=== PATIENT | male | born 1955 | race Two or more races ===

== ENCOUNTER → 2018-09-05 | Outpatient (CLI) | payer OTHER ==
[~2018-09-05] MED LIST: ALPR0.5T PO; ESCI10TA PO; GLY5T PO; LORA2TAB89 PO; LOSA100T22 PO; METF-371 PO; MULT-228 PO
[2018-09-05 13:42] LABS: Uric Acid 8.5 mg/dL (3.5-7.2)
== END | disposition home or self-care (01) ==
LOC: LAB 12:17
PROVIDERS: ATTEND Internal Medicine
DX: Z12.11 Encounter for screening for malignant neoplasm of colon (principal); I10 Essential (primary) hypertension; E11.9 Type 2 diabetes mellitus without complications
CPT/HCPCS: 36415; 80061; 82043; 83036; 84550

== ENCOUNTER → 2018-12-18 | Outpatient (CLI) | payer OTHER | END | disposition home or self-care (01) | LOC: LAB 12:13 | PROVIDERS: ATTEND Internal Medicine | DX: E11.9 Type 2 diabetes mellitus without complications (principal); I10 Essential (primary) hypertension; E79.0 Hyperuricemia without signs of inflammatory arthritis and tophaceous disease | CPT/HCPCS: 36415; 83036; 84550 ==

== ENCOUNTER → 2019-02-27 | Outpatient (CLI) | payer OTHER ==
[2019-02-27 12:57] LABS: Albumin 3.5 g/dL (3.4-5.0); Calcium 8.9 mg/dL (8.5-10.1); Potassium 5.2 mmol/L (3.5-5.1); Uric Acid 6.8 mg/dL (3.5-7.2)
[2019-02-27 13:02] LABS: BUN/Creatinine Ratio 19.9; Bilirubin, Total 0.5 mg/dL (0.2-1.0); Total Protein 7.8 g/dL (6.4-8.2)
== END | disposition home or self-care (01) ==
LOC: LAB 11:59
PROVIDERS: ATTEND Internal Medicine
DX: Z12.5 Encounter for screening for malignant neoplasm of prostate (principal); E79.0 Hyperuricemia without signs of inflammatory arthritis and tophaceous disease; E11.40 Type 2 diabetes mellitus with diabetic neuropathy, unspecified; E11.21 Type 2 diabetes mellitus with diabetic nephropathy; I10 Essential (primary) hypertension
CPT/HCPCS: 36415; 80053; 80061; 84153; 84550

== ENCOUNTER → 2019-03-14 | Outpatient (CLI) | payer OTHER ==
[2019-03-14 13:42] LABS: BUN/Creatinine Ratio 17.9
== END | disposition home or self-care (01) ==
LOC: LAB 11:55
PROVIDERS: ATTEND Internal Medicine
DX: E11.21 Type 2 diabetes mellitus with diabetic nephropathy (principal); E11.40 Type 2 diabetes mellitus with diabetic neuropathy, unspecified
CPT/HCPCS: 36415; 80048

== ENCOUNTER → 2020-07-17 | Outpatient (CLI) | payer OTHER ==
[2020-07-17 13:52] LABS: Cholesterol 89 mg/dL (< 200); HDL Cholesterol 44 mg/dL (40-59); LDL Cholesterol 31 mg/dL (< 100); Triglycerides 83 mg/dL (< 150)
== END | disposition home or self-care (01) ==
LOC: LAB 12:49
PROVIDERS: ATTEND Internal Medicine
DX: E11.9 Type 2 diabetes mellitus without complications (principal); Z12.11 Encounter for screening for malignant neoplasm of colon
CPT/HCPCS: 36415; 80061; 82043; 83036

== ENCOUNTER → 2020-10-10 | Outpatient (CLI) | payer OTHER ==
[~2020-10-10] MED LIST changes: -GLY5T PO; +GLYB5TAB9 PO
[2020-10-10 14:19] LABS: Albumin 3.8 g/dL (3.4-5.0); Calcium 8.6 mg/dL (8.5-10.1)
[2020-10-10 14:22] LABS: BUN/Creatinine Ratio 13.3; Bilirubin, Total 0.6 mg/dL (0.2-1.0); Total Protein 7.5 g/dL (6.4-8.2)
[2020-10-10 14:32] LABS: Potassium 5.6 mmol/L (3.5-5.1)
== END | disposition home or self-care (01) ==
LOC: LAB 13:25
PROVIDERS: ATTEND Internal Medicine
DX: E11.9 Type 2 diabetes mellitus without complications (principal)
CPT/HCPCS: 36415; 80053

== ENCOUNTER → 2020-10-17 | Outpatient (CLI) | payer OTHER ==
[2020-10-17 14:04] LABS: BUN/Creatinine Ratio 13.7; Calcium 8.8 mg/dL (8.5-10.1); Potassium 5.3 mmol/L (3.5-5.1)
== END | disposition home or self-care (01) ==
LOC: LAB 13:08
PROVIDERS: ATTEND Internal Medicine
DX: E87.5 Hyperkalemia (principal)
CPT/HCPCS: 36415; 80048

== ENCOUNTER → 2020-10-30 | Outpatient (CLI) | payer OTHER ==
[2020-10-30 13:29] LABS: Calcium 8.6 mg/dL (8.5-10.1)
[2020-10-30 13:32] LABS: BUN/Creatinine Ratio 14.5
== END | disposition home or self-care (01) ==
LOC: LAB 11:35
PROVIDERS: ATTEND Internal Medicine
DX: E87.5 Hyperkalemia (principal)
CPT/HCPCS: 36415; 80048

== ENCOUNTER → 2020-11-26 | Outpatient (CLI) | payer OTHER ==
[2020-11-26 11:22] LABS: Basophils # (auto) 0.1 10 ^3/uL (0-0.2); Eosinophils # (auto) 0.2 10 ^3/uL (0-0.8); Eosinophils % (auto) 3.1 % (0.0-7.0); Hematocrit 38.7 % (41.0-53.0); Hemoglobin 13.4 g/dL (13.5-17.5); Lymphocytes # (auto) 0.8 10 ^3/uL (0.4-5.4); Lymphocytes % (auto) 12.7 % (10.0-50.0); Mean Corpuscular Hemoglobin 34.2 pg (28.0-32.0); Mean Corpuscular Hgb Conc. 34.5 g/dL (32.0-36.0); Mean Corpuscular Volume 99.2 fL (80.0-100.0); Monocytes # (auto) 0.5 10 ^3/uL (0-1.3); Monocytes % (auto) 7.3 % (0.0-12.0); Neutrophils % (auto) 75.9 % (37.0-80.0); Nucleated Red Blood Cells % 0.2 %; Platelet Count (auto) 178 10^3/uL (140-450); White Blood Cell 6.6 10^3/uL (4.4-10.8)
== END | disposition home or self-care (01) ==
LOC: LAB 10:38
PROVIDERS: ATTEND Internal Medicine
DX: E11.9 Type 2 diabetes mellitus without complications (principal); N40.0 Benign prostatic hyperplasia without lower urinary tract symptoms
CPT/HCPCS: 36415; 83036; 84153; 85025

== ENCOUNTER → 2020-12-03 | Outpatient (CLI) | payer OTHER ==
[2020-12-03 12:54] LABS: BUN/Creatinine Ratio 13.4; Calcium 8.2 mg/dL (8.5-10.1); Potassium 4.8 mmol/L (3.5-5.1); Uric Acid 5.9 mg/dL (3.5-7.2)
== END | disposition home or self-care (01) ==
LOC: LAB 11:38
PROVIDERS: ATTEND Internal Medicine
DX: E11.9 Type 2 diabetes mellitus without complications (principal); I10 Essential (primary) hypertension; E78.5 Hyperlipidemia, unspecified; E87.5 Hyperkalemia
CPT/HCPCS: 36415; 80048; 82306; 83880; 84550

== ENCOUNTER 2021-01-02 13:02 | Inpatient (IN) | payer OTHER ==
[~2021-01-02] VITALS: Ht 180.3 cm; Wt 108.9 kg
[2021-01-02 13:54] LABS: Basophils # (auto) 0 10 ^3/uL (0-0.2); Basophils % (auto) 0.6 % (0.0-2.0); Eosinophils # (auto) 0.1 10 ^3/uL (0-0.8); Eosinophils % (auto) 1.7 % (0.0-7.0); Hematocrit 32.9 % (41.0-53.0); Hemoglobin 11.3 g/dL (13.5-17.5); Lymphocytes # (auto) 0.5 10 ^3/uL (0.4-5.4); Lymphocytes % (auto) 6.4 % (10.0-50.0); Mean Corpuscular Hemoglobin 33.8 pg (28.0-32.0); Mean Corpuscular Hgb Conc. 34.3 g/dL (32.0-36.0); Mean Corpuscular Volume 98.5 fL (80.0-100.0); Monocytes # (auto) 0.7 10 ^3/uL (0-1.3); Monocytes % (auto) 9.2 % (0.0-12.0); Neutrophils # (auto) 5.9 10 ^3/uL (1.6-8.6); Neutrophils % (auto) 82.1 % (37.0-80.0); Red Blood Cells 3.34 10^6/uL (4.5-5.90); Red Cell Distribution Width 14.7 % (11.8-14.3); White Blood Cell 7.2 10^3/uL (4.4-10.8)
[2021-01-02 14:08] LABS: Albumin 3.2 g/dL (3.4-5.0); Anion Gap 10 (5-15); Blood Urea Nitrogen 74 mg/dL (7-18); Calcium 8.4 mg/dL (8.5-10.1); Carbon Dioxide 15 mmol/L (21-32); Chloride 112 mmol/L (98-107); Glucose 113 mg/dL (74-106); Magnesium 2.2 mg/dL (1.6-2.6); Potassium 4.4 mmol/L (3.5-5.1); Sodium 137 mmol/L (136-145)
[2021-01-02 14:15] LABS: Alanine Aminotransferase 24 U/L (16-61); Alkaline Phosphatase 108 U/L (45-117); Aspartate Aminotransferase 17 U/L (15-37); BUN/Creatinine Ratio 12.4; Bilirubin, Total 1.4 mg/dL (0.2-1.0); GFR African American 12 mL/min; GFR Non-African American 10 mL/min; Total Protein 7.5 g/dL (6.4-8.2)
[2021-01-02] MEDS ORDERED: FUROSEMIDE 40 MG/4 ML VIAL IV ONE (14:15)
[2021-01-02] MEDS ORDERED: NITROGLYCERIN 0.4 MG SL TAB SL PRN ×2 (15:30→21:30)
[2021-01-02] MEDS ORDERED: MORPHINE SULFATE INJECTION 2 MG/ML SYRG IV PRN ×3 (15:30→21:30)
[2021-01-02 18:02] VITALS: BP 124/71
[2021-01-02] MEDS ORDERED: ALBUTEROL SULF 2.5 MG/0.5ML(0.5%) NEB SOLN NEB PRN (18:45)
[2021-01-02 19:05] VITALS: BP 124/71
[2021-01-02 19:31] VITALS: BP 134/65
[2021-01-02] MEDS ORDERED: ONDANSETRON HCL 4 MG/2 ML VIAL IV PRN (21:30)
[2021-01-02] MEDS ORDERED: ALUM & MAG HYDROX-SIMETH LIQ(MAALOX) 30 ML PO PRN (21:30)
[2021-01-02] MEDS ORDERED: FUROSEMIDE 100 MG/10ML VIAL IV ONE (21:30)
[2021-01-02] MEDS ORDERED: DOCUSATE SOD 100 MG CAP PO PRN (21:30)
[2021-01-02] MEDS ORDERED: ACETAMINOPHEN 325 MG TAB PO PRN (21:30)
[2021-01-02 22:00] VITALS: BP 152/76
[2021-01-02] MEDS ORDERED: CARVEDILOL 12.5 MG TAB PO SCH (22:30)
[2021-01-02] MEDS ORDERED: DEXTROSE (50%) 50ML SYRG IV PRN (22:30)
[2021-01-02] MEDS: ATORVASTATIN 20 MG TAB PO SCH (23:34)
[2021-01-02] MEDS ORDERED: HYDR-4296 PO (23:41)
[2021-01-02] MEDS ORDERED: METO-462 PO (23:41)
[2021-01-02] MEDS ORDERED: NIFE1TAB31 PO (23:41)
[2021-01-03 04:35] LABS: Urine Bacteria FEW /hpf (None Seen); Urine Blood 1+ /uL (Negative); Urine Hyaline Cast MOD /lpf (0 - 2); Urine Specific Gravity 1.009 (1.001-1.035); Urine WBC 2 /hpf (0 - 3)
[2021-01-03 04:36] LABS: Alcohol, Urine < 3.0 mg/dL (0-10); Amphetamine Screen, Urine NEGATIVE (NEGATIVE); Barbiturate Scree,Urine NEGATIVE (NEGATIVE); Benzodiazephine Screen, Urine NEGATIVE (NEGATIVE); Cannabinoid Screen, Urine NEGATIVE (NEGATIVE); Cocaine Screen, Urine NEGATIVE (NEGATIVE); Opiate Scree,Urine NEGATIVE (NEGATIVE); Phencyclidine Screen, Urine NEGATIVE (NEGATIVE)
[2021-01-03 05:00] VITALS: BP 151/76
[2021-01-03] MEDS ORDERED: FUROSEMIDE 100 MG/10ML VIAL IV SCH (06:00)
[2021-01-03 06:21] LABS: Basophils # (auto) 0.1 10 ^3/uL (0-0.2); Eosinophils # (auto) 0 10 ^3/uL (0-0.8); Eosinophils % (auto) 0.3 % (0.0-7.0); Lymphocytes # (auto) 0.4 10 ^3/uL (0.4-5.4); Mean Corpuscular Hemoglobin 34.2 pg (28.0-32.0); Neutrophils # (auto) 8.3 10 ^3/uL (1.6-8.6)
[2021-01-03 06:23] LABS: Basophils % (auto) 0.5 % (0.0-2.0); Hemoglobin 11.5 g/dL (13.5-17.5); Lymphocytes % (auto) 4.3 % (10.0-50.0); Mean Corpuscular Hgb Conc. 34.8 g/dL (32.0-36.0); Mean Corpuscular Volume 98.5 fL (80.0-100.0); Monocytes # (auto) 0.8 10 ^3/uL (0-1.3); Monocytes % (auto) 8.4 % (0.0-12.0); Neutrophils % (auto) 86.5 % (37.0-80.0); Red Blood Cells 3.35 10^6/uL (4.5-5.90); Red Cell Distribution Width 14.7 % (11.8-14.3); White Blood Cell 9.6 10^3/uL (4.4-10.8)
[2021-01-03 06:38] LABS: Calcium 8.3 mg/dL (8.5-10.1); Chloride 109 mmol/L (98-107); INR 1.18 (0.9-1.15); Partial Thromboplastin Time 27.8 sec (23.0-31.2); Potassium 4.4 mmol/L (3.5-5.1); Sodium 134 mmol/L (136-145)
[2021-01-03] MEDS: ACCU-CHEK COMFORT CURVE STRIP VI SCH ×4 (06:42→22:00)
[2021-01-03] MEDS: InsuLIN REG 1unit/0.01ml Soln (100units/ml) SC SCH ×4 (06:42→22:00)
[2021-01-03 06:46] LABS: Alanine Aminotransferase 26 U/L (16-61); Albumin 3.2 g/dL (3.4-5.0); Alkaline Phosphatase 121 U/L (45-117); Anion Gap 13 (5-15); Aspartate Aminotransferase 23 U/L (15-37); Bilirubin, Total 1.2 mg/dL (0.2-1.0); Blood Urea Nitrogen 74 mg/dL (7-18); Carbon Dioxide 12 mmol/L (21-32); GFR African American 12 mL/min; GFR Non-African American 10 mL/min; Glucose 133 mg/dL (74-106); Magnesium 2.2 mg/dL (1.6-2.6); Phosphorus 5.3 mg/dL (2.5-4.90); Thyroid Stimulating Hormone 2.73 uIU/mL (0.358-3.74); Total Protein 7.8 g/dL (6.4-8.2); Uric Acid 6.1 mg/dL (3.5-7.2)
[2021-01-03 09:00] VITALS: BP 161/83
[2021-01-03] MEDS: METOPROLOL SUCCINATE XL 50 MG TAB PO SCH (09:41)
[2021-01-03] MEDS: ASPirin 81 mg TAB PO SCH (09:41)
[2021-01-03] MEDS ORDERED: LISINOPRIL 10 MG TAB PO SCH (10:00)
[2021-01-03 13:00] VITALS: BP 154/81
[2021-01-03] MEDS ORDERED: cefTRIAXone 1GM/50ML D5W 50 ML IV ONE (16:15)
[2021-01-03] MEDS ORDERED: MULTIPLE VITAMINS W/ MINERALS TAB PO ONE (16:15)
[2021-01-03 17:00] VITALS: BP 155/73
[2021-01-03] MEDS: hydrALAZINE HCL 20 MG/ML VL IV PRN (18:20)
[2021-01-03] MEDS: FUROSEMIDE 40 MG/4 ML VIAL IV SCH (18:20)
[2021-01-03 21:47] VITALS: BP 155/78
[2021-01-03] MEDS: ATORVASTATIN 20 MG TAB PO SCH (23:06)
[2021-01-03] MEDS: APIXABAN 5 MG TAB PO SCH (23:06)
[2021-01-03] MEDS: ALPRAZolam 0.5 MG TAB PO PRN (23:07)
[2021-01-04] MEDS: hydrALAZINE HCL 20 MG/ML VL IV PRN ×2 (04:23→22:13)
[2021-01-04 04:39] VITALS: BP 163/83
[2021-01-04] MEDS: ACCU-CHEK COMFORT CURVE STRIP VI SCH ×4 (06:50→21:51)
[2021-01-04] MEDS: FUROSEMIDE 40 MG/4 ML VIAL IV SCH (06:50)
[2021-01-04] MEDS: InsuLIN REG 1unit/0.01ml Soln (100units/ml) SC SCH ×4 (06:50→21:51)
[2021-01-04 07:28] LABS: Basophils # (auto) 0.1 10 ^3/uL (0-0.2); Eosinophils # (auto) 0.2 10 ^3/uL (0-0.8); Eosinophils % (auto) 1.8 % (0.0-7.0); Hematocrit 34.2 % (41.0-53.0); Hemoglobin 11.7 g/dL (13.5-17.5); Lymphocytes # (auto) 0.6 10 ^3/uL (0.4-5.4); Lymphocytes % (auto) 7.5 % (10.0-50.0); Mean Corpuscular Hemoglobin 33.7 pg (28.0-32.0); Mean Corpuscular Hgb Conc. 34.4 g/dL (32.0-36.0); Monocytes # (auto) 0.7 10 ^3/uL (0-1.3); Monocytes % (auto) 8.8 % (0.0-12.0); Neutrophils # (auto) 6.7 10 ^3/uL (1.6-8.6); Neutrophils % (auto) 80.9 % (37.0-80.0); Nucleated Red Blood Cells % 0.1 %; Red Blood Cells 3.49 10^6/uL (4.5-5.90); Red Cell Distribution Width 14.7 % (11.8-14.3); White Blood Cell 8.3 10^3/uL (4.4-10.8)
[2021-01-04 07:52] LABS: Albumin 3.3 g/dL (3.4-5.0); Anion Gap 15 (5-15); Calcium 8.5 mg/dL (8.5-10.1); Carbon Dioxide 13 mmol/L (21-32); Chloride 107 mmol/L (98-107); Glucose 92 mg/dL (74-106); Potassium 3.8 mmol/L (3.5-5.1); Sodium 135 mmol/L (136-145)
[2021-01-04 07:59] LABS: Alanine Aminotransferase 45 U/L (16-61); Alkaline Phosphatase 183 U/L (45-117); Aspartate Aminotransferase 41 U/L (15-37); BUN/Creatinine Ratio 13.5; Bilirubin, Total 1.1 mg/dL (0.2-1.0); GFR African American 12 mL/min; GFR Non-African American 10 mL/min; Total Protein 7.6 g/dL (6.4-8.2)
[2021-01-04 08:25] LABS: Blood Urea Nitrogen 81 mg/dL (7-18)
[2021-01-04 09:00] VITALS: BP 147/74
[2021-01-04] MEDS: ASPirin 81 mg TAB PO SCH (09:36)
[2021-01-04] MEDS: cefTRIAXone 1GM/50ML D5W 50 ML IV SCH (09:36)
[2021-01-04] MEDS: APIXABAN 5 MG TAB PO SCH ×2 (09:36→22:13)
[2021-01-04] MEDS: amLODIPine BESYLATE 5 MG TAB PO SCH (09:37)
[2021-01-04] MEDS: METOPROLOL SUCCINATE XL 50 MG TAB PO SCH (09:37)
[2021-01-04] MEDS: MULTIPLE VITAMINS W/ MINERALS TAB PO SCH (09:37)
[2021-01-04] MEDS: SODIUM BICARBONATE 50ML VIAL 75 ML in SOD CHL 0.45% 1,000 ML IV SCH ×2 (10:37→22:12)
[2021-01-04 13:00] VITALS: BP 147/81
[2021-01-04] MEDS ORDERED: LOPERAMIDE 1 mg/7.5ml ORAL soln PO PRN (13:45)
[2021-01-04 17:00] VITALS: BP 143/83
[2021-01-04] MEDS: BUMETANIDE 2.5mg/10ml (0.25 mg/ml) INJ IV SCH (17:34)
[2021-01-04 22:00] VITALS: BP 168/96
[2021-01-04] MEDS: ATORVASTATIN 20 MG TAB PO SCH (22:13)
[2021-01-04] MEDS: ALPRAZolam 0.5 MG TAB PO PRN (22:13)
[2021-01-05] VITALS (7 sets, daily range): BP systolic 129–168; BP diastolic 69–90
[2021-01-05] MEDS: BUMETANIDE 2.5mg/10ml (0.25 mg/ml) INJ IV SCH ×2 (06:26→18:11)
[2021-01-05] MEDS: SODIUM BICARBONATE 50ML VIAL 75 ML in SOD CHL 0.45% 1,000 ML IV SCH ×2 (06:26→09:58)
[2021-01-05] MEDS: ACCU-CHEK COMFORT CURVE STRIP VI SCH ×4 (06:27→22:00)
[2021-01-05] MEDS: InsuLIN REG 1unit/0.01ml Soln (100units/ml) SC SCH ×4 (06:27→22:00)
[2021-01-05 06:55] LABS: Basophils # (auto) 0.1 10 ^3/uL (0-0.2); Basophils % (auto) 1.2 % (0.0-2.0); Eosinophils # (auto) 0.2 10 ^3/uL (0-0.8); Eosinophils % (auto) 3.9 % (0.0-7.0); Hematocrit 29.2 % (41.0-53.0); Hemoglobin 10.2 g/dL (13.5-17.5); Lymphocytes # (auto) 0.4 10 ^3/uL (0.4-5.4); Lymphocytes % (auto) 6.6 % (10.0-50.0); Mean Corpuscular Hemoglobin 33.8 pg (28.0-32.0); Mean Corpuscular Hgb Conc. 34.9 g/dL (32.0-36.0); Monocytes # (auto) 0.6 10 ^3/uL (0-1.3); Monocytes % (auto) 10.6 % (0.0-12.0); Neutrophils # (auto) 4.3 10 ^3/uL (1.6-8.6); Neutrophils % (auto) 77.7 % (37.0-80.0); Nucleated Red Blood Cells % 0.1 %; Red Blood Cells 3.01 10^6/uL (4.5-5.90); Red Cell Distribution Width 14.4 % (11.8-14.3); White Blood Cell 5.6 10^3/uL (4.4-10.8)
[2021-01-05 07:12] LABS: Potassium 3.6 mmol/L (3.5-5.1)
[2021-01-05 07:22] LABS: Albumin 2.9 g/dL (3.4-5.0); Bilirubin, Total 0.7 mg/dL (0.2-1.0); Calcium 7.9 mg/dL (8.5-10.1); Total Protein 6.8 g/dL (6.4-8.2)
[2021-01-05] MEDS: ASPirin 81 mg TAB PO SCH (09:55)
[2021-01-05] MEDS: MULTIPLE VITAMINS W/ MINERALS TAB PO SCH (09:56)
[2021-01-05] MEDS: METOPROLOL SUCCINATE XL 50 MG TAB PO SCH (09:56)
[2021-01-05] MEDS: APIXABAN 5 MG TAB PO SCH ×2 (09:56→22:00)
[2021-01-05] MEDS: amLODIPine BESYLATE 5 MG TAB PO SCH (09:57)
[2021-01-05] MEDS: cefTRIAXone 1GM/50ML D5W 50 ML IV SCH (10:00)
[2021-01-05] MEDS ORDERED: metOLazone 5 MG TAB PO ONE (10:15)
[2021-01-05] MEDS: ATORVASTATIN 20 MG TAB PO SCH (22:00)
[2021-01-06] VITALS (7 sets, daily range): BP systolic 126–168; BP diastolic 60–90
[2021-01-06] MEDS: SODIUM BICARBONATE 50ML VIAL 75 ML in SOD CHL 0.45% 1,000 ML IV SCH ×3 (04:15→23:15)
[2021-01-06] MEDS: BUMETANIDE 2.5mg/10ml (0.25 mg/ml) INJ IV SCH ×2 (05:43→19:14)
[2021-01-06] MEDS: ACCU-CHEK COMFORT CURVE STRIP VI SCH ×4 (06:36→22:00)
[2021-01-06] MEDS: InsuLIN REG 1unit/0.01ml Soln (100units/ml) SC SCH ×4 (06:36→22:17)
[2021-01-06 07:25] LABS: Albumin 3.1 g/dL (3.4-5.0); Calcium 8.1 mg/dL (8.5-10.1); Potassium 3.5 mmol/L (3.5-5.1)
[2021-01-06 07:30] LABS: BUN/Creatinine Ratio 14.3; Bilirubin, Total 0.7 mg/dL (0.2-1.0); Total Protein 7.1 g/dL (6.4-8.2)
[2021-01-06] MEDS ORDERED: ERGOCALCIFEROL 50,000 UNIT(1.25MG) CAP PO SCH (10:45)
[2021-01-06] MEDS: metOLazone 5 MG TAB PO SCH (11:18)
[2021-01-06] MEDS: APIXABAN 5 MG TAB PO SCH ×2 (11:18→22:00)
[2021-01-06] MEDS: ASPirin 81 mg TAB PO SCH (11:18)
[2021-01-06] MEDS: MULTIPLE VITAMINS W/ MINERALS TAB PO SCH (11:19)
[2021-01-06] MEDS: amLODIPine BESYLATE 5 MG TAB PO SCH (11:19)
[2021-01-06] MEDS: METOPROLOL SUCCINATE XL 50 MG TAB PO SCH (11:20)
[2021-01-06] MEDS: ATORVASTATIN 20 MG TAB PO SCH (22:00)
[2021-01-06] MEDS: ALPRAZolam 0.5 MG TAB PO PRN (23:50)
[2021-01-06] MEDS: HYDROcodone-ACET 5/325MG TAB PO PRN (23:50)
[2021-01-07] VITALS (7 sets, daily range): BP systolic 131–155; BP diastolic 70–94
[2021-01-07] MEDS: BUMETANIDE 2.5mg/10ml (0.25 mg/ml) INJ IV SCH ×2 (06:00→19:49)
[2021-01-07] MEDS: InsuLIN REG 1unit/0.01ml Soln (100units/ml) SC SCH ×4 (06:48→22:56)
[2021-01-07] MEDS: ACCU-CHEK COMFORT CURVE STRIP VI SCH ×4 (06:49→23:18)
[2021-01-07 07:30] LABS: Albumin 2.9 g/dL (3.4-5.0); Calcium 7.8 mg/dL (8.5-10.1); Potassium 3.4 mmol/L (3.5-5.1)
[2021-01-07 07:34] LABS: Bilirubin, Total 0.7 mg/dL (0.2-1.0); Total Protein 6.5 g/dL (6.4-8.2)
[2021-01-07 07:36] LABS: BUN/Creatinine Ratio 14.8
[2021-01-07] MEDS ORDERED: BUMETANIDE 2.5mg/10ml (0.25 mg/ml) INJ IV SCH (10:00)
[2021-01-07] MEDS: SODIUM BICARBONATE 50ML VIAL 100 ML in SOD CHL 0.45% 1,000 ML IV SCH (10:00)
[2021-01-07] MEDS: metOLazone 5 MG TAB PO SCH (11:59)
[2021-01-07] MEDS: MULTIPLE VITAMINS W/ MINERALS TAB PO SCH (11:59)
[2021-01-07] MEDS: ASPirin 81 mg TAB PO SCH (11:59)
[2021-01-07] MEDS: amLODIPine BESYLATE 5 MG TAB PO SCH (12:00)
[2021-01-07] MEDS: APIXABAN 5 MG TAB PO SCH ×2 (12:00→23:16)
[2021-01-07] MEDS: METOPROLOL SUCCINATE XL 50 MG TAB PO SCH (12:01)
[2021-01-07] MEDS: ATORVASTATIN 20 MG TAB PO SCH (23:16)
[2021-01-08] MEDS: hydrALAZINE HCL 20 MG/ML VL IV PRN ×2 (00:05→06:45)
[2021-01-08] MEDS: SODIUM BICARBONATE 50ML VIAL 100 ML in SOD CHL 0.45% 1,000 ML IV SCH ×2 (00:20→17:33)
[2021-01-08 05:49] VITALS: BP 161/72
[2021-01-08] MEDS: BUMETANIDE 2.5mg/10ml (0.25 mg/ml) INJ IV SCH ×2 (06:04→17:33)
[2021-01-08] MEDS: InsuLIN REG 1unit/0.01ml Soln (100units/ml) SC SCH ×4 (06:05→22:26)
[2021-01-08] MEDS: ACCU-CHEK COMFORT CURVE STRIP VI SCH ×4 (06:07→21:28)
[2021-01-08 07:37] LABS: Basophils # (auto) 0.1 10 ^3/uL (0-0.2); Basophils % (auto) 1.7 % (0.0-2.0); Eosinophils # (auto) 0.3 10 ^3/uL (0-0.8); Eosinophils % (auto) 4.6 % (0.0-7.0); Hematocrit 29.8 % (41.0-53.0); Hemoglobin 10.4 g/dL (13.5-17.5); Lymphocytes # (auto) 0.7 10 ^3/uL (0.4-5.4); Mean Corpuscular Hemoglobin 33.6 pg (28.0-32.0); Mean Corpuscular Hgb Conc. 34.8 g/dL (32.0-36.0); Mean Corpuscular Volume 96.6 fL (80.0-100.0); Monocytes # (auto) 0.6 10 ^3/uL (0-1.3); Monocytes % (auto) 9.2 % (0.0-12.0); Neutrophils # (auto) 5.2 10 ^3/uL (1.6-8.6); Neutrophils % (auto) 74.5 % (37.0-80.0); Nucleated Red Blood Cells % 0.1 %; Red Blood Cells 3.08 10^6/uL (4.5-5.90); Red Cell Distribution Width 14.4 % (11.8-14.3); White Blood Cell 6.9 10^3/uL (4.4-10.8)
[2021-01-08 07:51] LABS: Potassium 3.3 mmol/L (3.5-5.1)
[2021-01-08 08:03] LABS: Albumin 3.2 g/dL (3.4-5.0); Bilirubin, Total 0.8 mg/dL (0.2-1.0); Calcium 7.8 mg/dL (8.5-10.1); Total Protein 7.3 g/dL (6.4-8.2)
[2021-01-08 08:53] VITALS: BP 161/72
[2021-01-08 09:00] VITALS: BP 153/79
[2021-01-08] MEDS: MULTIPLE VITAMINS W/ MINERALS TAB PO SCH (09:52)
[2021-01-08] MEDS: METOPROLOL SUCCINATE XL 50 MG TAB PO SCH (09:53)
[2021-01-08] MEDS: ASPirin 81 mg TAB PO SCH (09:53)
[2021-01-08] MEDS: HYDROcodone-ACET 5/325MG TAB PO PRN ×2 (09:53→21:28)
[2021-01-08] MEDS: amLODIPine BESYLATE 5 MG TAB PO SCH (09:54)
[2021-01-08] MEDS: metOLazone 5 MG TAB PO SCH (09:54)
[2021-01-08 13:00] VITALS: BP 145/112
[2021-01-08] MEDS ORDERED: POTASSIUM CHL 20 Meq TABLET PO ONE (13:00)
[2021-01-08 17:23] VITALS: BP 146/74
[2021-01-08] MEDS: ATORVASTATIN 20 MG TAB PO SCH (21:28)
[2021-01-08 22:00] VITALS: BP 124/60
[2021-01-08] MEDS: ALPRAZolam 0.5 MG TAB PO PRN (23:28)
[2021-01-09] MEDS: ATORVASTATIN 20 MG TAB PO SCH (00:45)
[2021-01-09] MEDS: BUMETANIDE 2.5mg/10ml (0.25 mg/ml) INJ IV SCH ×2 (06:00→17:43)
[2021-01-09 06:16] LABS: Basophils # (auto) 0.1 10 ^3/uL (0-0.2); Basophils % (auto) 1.3 % (0.0-2.0); Eosinophils # (auto) 0.2 10 ^3/uL (0-0.8); Eosinophils % (auto) 3.3 % (0.0-7.0); Hematocrit 27.5 % (41.0-53.0); Hemoglobin 9.6 g/dL (13.5-17.5); Lymphocytes # (auto) 0.7 10 ^3/uL (0.4-5.4); Lymphocytes % (auto) 11.3 % (10.0-50.0); Mean Corpuscular Hemoglobin 33.7 pg (28.0-32.0); Mean Corpuscular Hgb Conc. 34.8 g/dL (32.0-36.0); Mean Corpuscular Volume 97.1 fL (80.0-100.0); Monocytes # (auto) 0.6 10 ^3/uL (0-1.3); Monocytes % (auto) 9.6 % (0.0-12.0); Neutrophils # (auto) 4.7 10 ^3/uL (1.6-8.6); Neutrophils % (auto) 74.5 % (37.0-80.0); Red Blood Cells 2.84 10^6/uL (4.5-5.90); Red Cell Distribution Width 14.2 % (11.8-14.3); White Blood Cell 6.4 10^3/uL (4.4-10.8)
[2021-01-09 06:41] LABS: BUN/Creatinine Ratio 15.7; Potassium 3.7 mmol/L (3.5-5.1)
[2021-01-09] MEDS: InsuLIN REG 1unit/0.01ml Soln (100units/ml) SC SCH ×4 (07:00→22:00)
[2021-01-09] MEDS ORDERED: SODIUM CHL 0.9% 1000 ML BAG XX ONE (07:00)
[2021-01-09] MEDS: ACCU-CHEK COMFORT CURVE STRIP VI SCH ×4 (07:31→22:00)
[2021-01-09 08:00] VITALS: BP 151/82
[2021-01-09 08:15] VITALS: BP 151/82
[2021-01-09] MEDS: SODIUM BICARBONATE 50ML VIAL 100 ML in SOD CHL 0.45% 1,000 ML IV SCH (09:16)
[2021-01-09] MEDS: MULTIPLE VITAMINS W/ MINERALS TAB PO SCH (10:00)
[2021-01-09] MEDS: metOLazone 5 MG TAB PO SCH (10:00)
[2021-01-09] MEDS: METOPROLOL SUCCINATE XL 50 MG TAB PO SCH (10:00)
[2021-01-09] MEDS: amLODIPine BESYLATE 5 MG TAB PO SCH (10:00)
[2021-01-09] MEDS ORDERED: fentaNYL CITRATE 100 MCG/2 ML VL ONE (11:49)
[2021-01-09] MEDS ORDERED: MIDAZOLAM HCL 2MG/2ML 2ml VIAL (1mg/ml) ONE (11:49)
[2021-01-09] MEDS ORDERED: HEPARIN SODIUM (PORCINE) 5000 UNITS/ML 1ML VIAL ONE (11:50)
[2021-01-09] MEDS ORDERED: LIDOCAINE 2%HCL (LOCAL ANESTH.) INJ 20ML MDV ONE (12:05)
[2021-01-09] MEDS ORDERED: LIDOCAINE W/ EPINEPHRINE 2% INJ 20ML VIAL ONE (12:50)
[2021-01-09] MEDS ORDERED: ERGOCALCIFEROL 50,000 UNIT(1.25MG) CAP PO SCH (16:45)
[2021-01-09] MEDS: HYDROcodone-ACET 5/325MG TAB PO PRN (17:12)
[2021-01-09] MEDS ORDERED: EPOETIN ALFA-EPBX 10,000 UNIT/1ML VIAL SC ONE (21:00)
[2021-01-09 22:00] VITALS: BP 105/46
[2021-01-10] MEDS: SODIUM BICARBONATE 50ML VIAL 100 ML in SOD CHL 0.45% 1,000 ML IV SCH ×2 (00:45→16:58)
[2021-01-10 05:00] VITALS: BP 123/66
[2021-01-10 06:05] LABS: BUN/Creatinine Ratio 14.8
[2021-01-10] MEDS: BUMETANIDE 2.5mg/10ml (0.25 mg/ml) INJ IV SCH ×2 (06:06→18:00)
[2021-01-10] MEDS: ACCU-CHEK COMFORT CURVE STRIP VI SCH ×3 (06:24→16:58)
[2021-01-10] MEDS: InsuLIN REG 1unit/0.01ml Soln (100units/ml) SC SCH ×3 (06:38→16:58)
[2021-01-10 08:00] VITALS: BP 148/92
[2021-01-10 09:00] VITALS: BP 113/42
[2021-01-10] MEDS: MULTIPLE VITAMINS W/ MINERALS TAB PO SCH (10:05)
[2021-01-10] MEDS: amLODIPine BESYLATE 5 MG TAB PO SCH (10:06)
[2021-01-10] MEDS: METOPROLOL SUCCINATE XL 50 MG TAB PO SCH (10:06)
[2021-01-10] MEDS: metOLazone 5 MG TAB PO SCH (10:07)
[2021-01-10 13:00] VITALS: BP 151/91
[2021-01-10 16:39] VITALS: BP 151/91
[2021-01-10 16:57] VITALS: BP 161/87
== END 2021-01-10 18:27 | disposition home or self-care (01) | DRG 291 ==
LOC: ER 13:02 → TELE 15:25 → TELE-CENTR 17:50
PROVIDERS: ADMIT Hospitalist; ATTEND Internal Medicine
PROC: 0JH63XZ Insertion of Tunneled Vascular Access Device into Chest Subcutaneous Tissue and Fascia, Percutaneous Approach (ICD-10-PCS; principal; 2021-01-09)
PROC: 02H633Z Insertion of Infusion Device into Right Atrium, Percutaneous Approach (ICD-10-PCS; 2021-01-09)
PROC: B548ZZA Ultrasonography of Superior Vena Cava, Guidance (ICD-10-PCS; 2021-01-09)
PROC: B5181ZA Fluoroscopy of Superior Vena Cava using Low Osmolar Contrast, Guidance (ICD-10-PCS; 2021-01-09)
DX: I13.2 Hypertensive heart and chronic kidney disease with heart failure and with stage 5 chronic kidney disease, or end stage renal disease (principal); J96.01 Acute respiratory failure with hypoxia; N17.0 Acute kidney failure with tubular necrosis; I50.31 Acute diastolic (congestive) heart failure; E87.2 Acidosis; D68.9 Coagulation defect, unspecified; D68.69 Other thrombophilia; N18.5 Chronic kidney disease, stage 5; J98.11 Atelectasis; E87.1 Hypo-osmolality and hyponatremia; E44.0 Moderate protein-calorie malnutrition; E11.21 Type 2 diabetes mellitus with diabetic nephropathy; I48.0 Paroxysmal atrial fibrillation; F43.10 Post-traumatic stress disorder, unspecified; Z20.822 Contact with and (suspected) exposure to COVID-19; D63.1 Anemia in chronic kidney disease; E11.22 Type 2 diabetes mellitus with diabetic chronic kidney disease; E55.9 Vitamin D deficiency, unspecified; E66.01 Morbid (severe) obesity due to excess calories; Z68.34 Body mass index [BMI] 34.0-34.9, adult; E78.5 Hyperlipidemia, unspecified; R04.0 Epistaxis; Z79.4 Long term (current) use of insulin; Z79.899 Other long term (current) drug therapy; Z87.891 Personal history of nicotine dependence; E21.3 Hyperparathyroidism, unspecified
CPT/HCPCS: 36415; 36561; 36600; 71045; 71250; 76775; 76942; 77001; 80048; 80053; 80307; 81001; 82306; 82728; 82805; 82962; 83036; 83615; 83735; 83880; 83970; 84100; 84443; 84484; 84550; 85025; 85049; 85610; 85730; 87040; 87045; 87086; 87340; 87426; 87427; 87493; 93005; 93306; 93970; 94640; 96374; 99152; 99153; 99291; G0378; J0696; J1642; J1815; J2250

== ENCOUNTER → 2021-02-20 | Outpatient (CLI) | payer OTHER ==
[~2021-02-20] MED LIST changes: -GLYB5TAB9 PO; +HYDR-4296 PO; -LORA2TAB89 PO; -LOSA100T22 PO; -METF-371 PO; +METO-462 PO; +NIFE1TAB31 PO
[2021-02-20 14:35] LABS: Basophils # (auto) 0.1 10 ^3/uL (0-0.2); Basophils % (auto) 1.3 % (0.0-2.0); Eosinophils # (auto) 0.2 10 ^3/uL (0-0.8); Eosinophils % (auto) 2.2 % (0.0-7.0); Hematocrit 43.2 % (41.0-53.0); Hemoglobin 14.8 g/dL (13.5-17.5); Lymphocytes # (auto) 1.6 10 ^3/uL (0.4-5.4); Lymphocytes % (auto) 19.6 % (10.0-50.0); Mean Corpuscular Hemoglobin 33.5 pg (28.0-32.0); Mean Corpuscular Hgb Conc. 34.3 g/dL (32.0-36.0); Mean Corpuscular Volume 97.9 fL (80.0-100.0); Monocytes # (auto) 0.6 10 ^3/uL (0-1.3); Monocytes % (auto) 7.5 % (0.0-12.0); Neutrophils # (auto) 5.5 10 ^3/uL (1.6-8.6); Neutrophils % (auto) 69.4 % (37.0-80.0); Nucleated Red Blood Cells % 0.2 %; Red Blood Cells 4.41 10^6/uL (4.5-5.90); Red Cell Distribution Width 14.8 % (11.8-14.3); White Blood Cell 7.9 10^3/uL (4.4-10.8)
[2021-02-20 14:49] LABS: INR 1.07 (0.9-1.15)
== END | disposition home or self-care (01) ==
LOC: LAB 14:20
PROVIDERS: ATTEND Student in an Organized Health Care Education/Training Program
DX: R79.1 Abnormal coagulation profile (principal); N18.5 Chronic kidney disease, stage 5; D63.1 Anemia in chronic kidney disease
CPT/HCPCS: 36415; 85025; 85610; 85730

== ENCOUNTER → 2021-04-01 | Outpatient (CLI) | payer OTHER ==
[~2021-04-01] VITALS: Ht 180.3 cm; Wt 99.8 kg
[~2021-04-01] MED LIST changes: +ADENOSINE 84 MG in GIVE UN-DILUTED 0 ML IV ONE; +ADENOSINE 90 MG/30 ML INJ IV ONE
== END | disposition home or self-care (01) ==
LOC: Rad HDHVI 09:08
PROVIDERS: ATTEND Internal Medicine
DX: I25.10 Atherosclerotic heart disease of native coronary artery without angina pectoris (principal); I12.0 Hypertensive chronic kidney disease with stage 5 chronic kidney disease or end stage renal disease; E11.22 Type 2 diabetes mellitus with diabetic chronic kidney disease; N18.5 Chronic kidney disease, stage 5; E78.5 Hyperlipidemia, unspecified; R06.02 Shortness of breath
CPT/HCPCS: 78452; 93005; 96374; 96375; A9500; J0153

== ENCOUNTER → 2021-06-22 | Outpatient (CLI) | payer OTHER, MEDICARE ==
[~2021-06-22] MED LIST changes: -ADENOSINE 84 MG in GIVE UN-DILUTED 0 ML IV ONE; -ADENOSINE 90 MG/30 ML INJ IV ONE
== END | disposition home or self-care (01) ==
LOC: LAB 15:25
PROVIDERS: ATTEND Internal Medicine
DX: E11.22 Type 2 diabetes mellitus with diabetic chronic kidney disease (principal); N18.6 End stage renal disease; E78.5 Hyperlipidemia, unspecified; Z99.2 Dependence on renal dialysis
CPT/HCPCS: 36415; 82306; 83036; 83880; 83970